=== PATIENT | male | born 1985 | race African-American/Black ===

== ENCOUNTER 2016-07-09 05:45 | Observation (INO) | payer MEDICARE, OTHER ==
--- NOTE | ~2016-07-09 | OP ---
Record Of Operation [facility] [address] [place]. [address] NAME: HILARY LUGO III : 81 STATUS : REG [facility]#: [id number] AGE: 31 ADM/REG DATE : 07/16/16 MR#: [id number] REPORT SERV DATE: 07/16/16 DICTATED BY: ROSEMARIE LI DATE: 07/16/16 REPORT STATUS : Draft TRANSCRIBED BY: MODL DATE: 07/16/16 DATE OF PROCEDURE: 07/16/2016 SERVICE: Otolaryngology. SURGEON: Rosemarie Li MD. PREOPERATIVE DIAGNOSIS: Left parotid/neck mass. POSTOPERATIVE DIAGNOSIS: Left parotid/neck mass. PROCEDURES PERFORMED: 1. Left superficial parotidectomy. 2. Left level 2 lymph node dissection. INDICATIONS FOR PROCEDURE: The patient is a 31-year-old male, who is HIV positive. He has had benign likely lymphoepithelial cysts removed from his right superficial parotid in the past. He presents for similar procedure on the left. He was noted to have intraparotid lymphadenopathy. He also has quite large lymphadenopathy in level 2 of his neck. ANESTHESIA: General endotracheal. ESTIMATED BLOOD LOSS: 30 mL. SPECIMEN: 1. Left superficial parotid. 2. Left level 2 neck nodes. RETAINED ITEMS: FLOWER drain. COMPLICATIONS: None. OPERATIVE FINDINGS: 1. Several enlarged intraparotid lymph nodes. 2. Enlarged lymph nodes in level 2 of the neck. DESCRIPTION OF PROCEDURE: The patient was identified in the preoperative holding, where informed consent was ensured. He was brought to the operating room and placed on the operating table in supine position. General endotracheal anesthesia was induced with GlideScope. The patient was intubated successfully and end-tidal CO2 was confirmed. A time out was performed to identify the patient and discuss the operative plan. A modified Antonio incision was marked on the patient's skin and injected with 1% lidocaine with 1:100,000 epinephrine. This was allowed to take full effect. The patient was prepped and draped in the standard sterile surgical fashion. Prior to proceeding, ground electrodes were placed in the patient's anterior chest wall. Additionally, an electrode was placed in the orbicularis adrian and orbicularis oculi muscles and taped to the skin. Finger tap showed Record Of Operation [facility] [address] [place] [address] NAME: HILARY LUGO III : 81 [place] : [place] [facility] [place] [id number] AGE: 31 ADM/REG DATE : 07/16/16 MR#: [id number] REPORT SERV DATE: 07/16/16 DICTATED BY: ROSEMARIE LI DATE: 07/16/16 REPORT STATUS : Draft TRANSCRIBED BY: MODL DATE: 07/16/16 that the NIMs monitoring system was indeed intact. This was used throughout the remainder the procedure to undo the facial nerve function. A 15 blade was used to make an incision into the subcutaneous tissue. Attention was turned first to the neck. A subplatysmal plane was elevated. The great auricular nerve was identified and preserved in the posterior branches. The posterior belly of the digastric was identified. Between the posterior belly of the digastric and after inserting the anterior border of the sternocleidomastoid, several enlarged lymph nodes were encountered. These were removed to complete the level 2 neck dissection. The incision was then deepened and a subcutaneous flap was raised over the surface of the parotid gland. A combination of sharp and blunt dissection was used to establish a plane in front of the pretragal pointer. The tympanomastoid suture line was also palpated. Once at this level, bipolar cautery was used. The facial nerve was found as it exited the stylomastoid foramen and entered the substance of the parotid. This was traced with Dajas until the pes was encountered. At this point, a combination of Harmonic Scalpel and bipolar cautery was used to free all overlying parotid tissue from the course of the facial nerve. First, the superior branches of the facial nerve were delineated. All overlying parotid tissue was freed. Secondly, the cervicomandibular branch of the facial nerve trunk was identified and traced. The buccal branches were preserved until later in the case. Once all overlying parotid fascia and soft tissue were removed, and the anterior freeing of the parotid fascia was performed to further release the gland. The buccal branches, which were relatively thin and small in this case were then traced under the substance of enlarged lymphadenopathy. These were kept in the surgical bed. The entire parotid gland was taken off the course of the nerve and sent for routine analysis. Careful hemostasis was then ensured with bipolar cautery. At this point, we proceeded to stimulate the nerve. The proximal nerve trunk was stimulated with good response in all branches. Secondly, the upper facial trunk was stimulated with a response of 1356 microvolts at 1 milliamp. The marginal mandibular branch was stimulated at 122 microvolts at 1 milliamp. Then, we proceeded to close the wound. The wound was copiously irrigated, and once again, all bleeders were coagulated with bipolar cautery with care to avoid the facial nerve. A FLOWER drain was placed. The deep and subcutaneous layer were closed with 3-0 Vicryl sutures in an interrupted fashion. The skin was reapproximated with a 5-0 chromic in a running, nonlocking fashion. Steri-Strips were then placed. The patient was turned back over to Anesthesia for awakening and extubation. He was transported to the PACU in stable condition. DISPOSITION: The patient will be admitted overnight for observation and drain management. /DENISE Rosemarie Li MD / [id number] Record Of Operation [address] [address] NAME: HILARY LUGO III : 81 [place] : [place] [facility] [place] [id number] AGE: 31 ADM/REG DATE : 07/16/16 MR#: [id number] REPORT SERV DATE: 07/16/16 DICTATED BY: ROSEMARIE LI DATE: 07/16/16 REPORT STATUS : Draft TRANSCRIBED BY: MODTee DATE: 07/16/16 CC: MD Michael Fontanez M.D.
[2016-07-09 11:12] LABS: HEMATOCRIT 39.9 % (40.0-51.0); HEMOGLOBIN 13.3 g/dL (13.6-17.8)
[2016-07-09 11:17] LABS: PARTIAL THROMBO TIME 28.9 SEC (22.5-37.2)
[2016-07-09 11:25] LABS: BUN (BLOOD UREA NITROGEN) 15 MG/DL (6-23); CALCIUM, SERUM 8.6 MG/DL (8.5-10.4); CHLORIDE, SERUM 110 MMOL/L (96-112); CO2 (CARBON DIOXIDE) 25 MMOL/L (24-34); CREATININE 0.91 MG/DL (0.70-1.30); GFR AFRICAN AMERICAN 128 ML/MIN (>=60); GFR NON AFRICAN AMERICAN 110 ML/MIN (>=60); GLUCOSE, SERUM 97 MG/DL (60-99); POTASSIUM, SERUM 4.3 MMOL/L (3.5-5.3); SODIUM, SERUM 144 MMOL/L (135-148)
[2016-07-09] MEDS ORDERED: PRIN20 PO (13:55)
[2016-07-09] MEDS ORDERED: CRESTOR10 PO (13:55)
[2016-07-09] MEDS ORDERED: JANUMET1 TAB PO (13:56)
[2016-07-09] MEDS ORDERED: ASAB PO (13:57)
[2016-07-10] MEDS ORDERED: NORV10 PO (17:46)
[2016-07-10] MEDS ORDERED: CAT1 PO (17:47)
[2016-07-17] MEDS ORDERED: ZOFRAN4 PO (09:49)
[2016-07-17] MEDS ORDERED: K500 PO (09:50)
[2016-07-17] MEDS ORDERED: NORCO1 TA2 PO (09:50)
== END 2016-07-17 12:34 | disposition home or self-care (01) ==
LOC: SDC 05:45 → SDC/OF 06:00
PROVIDERS: Otolaryngology
PROC: 0CB90ZZ Excision of Left Parotid Gland, Open Approach (ICD-10-PCS; 2016-07-16)
PROC: 07B20ZX Excision of Left Neck Lymphatic, Open Approach, Diagnostic (ICD-10-PCS; principal; 2016-07-16 07:15)
DX: K11.1 Hypertrophy of salivary gland (principal); K21.9 Gastro-esophageal reflux disease without esophagitis; E66.01 Morbid (severe) obesity due to excess calories; E78.00 Pure hypercholesterolemia, unspecified; I10 Essential (primary) hypertension; Z98.890 Other specified postprocedural states; Z82.49 Family history of ischemic heart disease and other diseases of the circulatory system; Z79.82 Long term (current) use of aspirin; Z68.42 Body mass index [BMI] 45.0-49.9, adult; Z79.899 Other long term (current) drug therapy; Z86.73 Personal history of transient ischemic attack (TIA), and cerebral infarction without residual deficits; Z21 Asymptomatic human immunodeficiency virus [HIV] infection status; Z79.01 Long term (current) use of anticoagulants
CPT/HCPCS: 71010; 80048; 82962; 83735; 84443; 84484; 85014; 85018; 85025; 85610; 85730; 88307; 88341; 88342; 88360; 93005; 99284; A9270-GY; G0378; J0690; J1170; J2250; J2370; J2405; J3010